=== PATIENT | male | born 1970 | race Caucasian/White ===

== ENCOUNTER 2022-09-24 11:42 | Inpatient (IN) ==
[2022-09-24] MEDS ORDERED: SODIUM CHLORIDE 0.9% 1000ML 1,000 ML IV ONE ×2 (11:51→13:41)
[2022-09-24] MEDS ORDERED: ACETAMINOPHEN 1,000 MG/100 ML VIAL IV STA (12:06)
[2022-09-24] MEDS ORDERED: MoRPHine SULFATE 10 MG/ML CARP/VIAL IV STA ×2 (12:06→13:55)
[2022-09-24] MEDS ORDERED: ONDANSETRON INJ 2 MG/ML 2 ML VIAL IV STA (12:06)
--- NOTE | 2022-09-24 12:16 | Emergency Department Note ---
Impression & Plan Hydronephrosis, Ureterolithiasis, Hx of lithotripsy ED Provider Note NAME: HELENA FISCHER AGE: 52 SEX: M ARRIVES VIA: Walk-In INFORMANT: Patient ED PROVIDER(S): Bernardo Avila MD CHIEF COMPLAINT: Left flank pain. PLAN: Disposition: Admit MEDICAL DECISION MAKING: The patient is a 52-year-old gentleman with a past medical history of nephrolithiasis who presents to the emergency department with acute onset left lower quadrant abdominal pain in setting of having recent lithotripsy on Thursday reports she was doing well over the weekend but then pain recurred and he has gross red blood in his urine. He reports associated nausea with the pain. He denies any fevers, cough, congestion. He reports he has been having diarrhea over the past week as well. He denies any recent antibiotics. On arrival the patient is uncomfortable no acute distress, afebrile stable vital signs. He has mild left lower abdominal tenderness without guarding or rebound. WBC 13K nonspecific. H/H and platelets within normal limits. Chemistry without metabolic acidosis. Total bili 1.5, nonspecific and LFTs otherwise normal. UA with RBCs and otherwise no evidence of infection. CT of the on pelvis was performed and demonstrates mild to moderate left hydroureteronephrosis with obstructing stone/fragments in the proximal and distal left ureter in setting of the patient's lead recent lithotripsy. Additionally, there is question of mild nonspecific colitis which may reflect the patient is diabetes mellitus. On reevaluation the patient did report feeling improvement initially following IV fluid hydration, APAP, morphine and Zofran. However his severe pain and nausea quickly returned. He was additionally given morphine and Phenergan. Given the persistence of his symptoms with numerous obstructing ureteral stone/fragments degrees plan for admission for additional pain control and likely urology consultation. Case was discussed with Lori Muir, Sara PAC, with Dr. Caitlyn Ruiz hospitalist who will evaluate the patient for admission. Triage Nursing notes reviewed and agree them. Prior/outside medical records reviewed Vital Signs: reviewed Differential diagnosis: Renal colic, UTI, appendicitis, diverticulitis, mesenteric ischemia, aortic pathology, infections, inflammatory bowel disease, PUD, biliary pathology, as well as other pathologies. ER treatment provided: See below. Diagnostics interpreted by me: Cardiac Monitoring: An order for continuous cardiac monitoring was placed and demonstrated normal sinus rhythm, 71 bpm, no ectopy. Laboratory studies: See below Imaging studies: See below Consultation(s): Case was discussed with Lori Muir, Sara PAC, with Dr. Caitlyn Ruiz hospitalist who will evaluate the patient for admission. HPI: The patient is a 52-year-old gentleman with a past medical history of nephrolithiasis who presents to the emergency department with acute onset left lower quadrant abdominal pain in setting of having recent lithotripsy on Thursday reports she was doing well over the weekend but then pain recurred and he has gross red blood in his urine. He reports associated nausea with the pain. He denies any fevers, cough, congestion. He reports he has been having diarrhea over the past week as well. He denies any recent antibiotics. ROS: See above HPI for pertinent positives & negatives. A total of 10 systems reviewed and were otherwise negative. VITALS:See Below PHYSICAL EXAMINATION: GENERAL: Awake, alert, uncomfortable-appearing, in no distress HENT: Normocephalic, atraumatic. Oropharynx with dry mucous membranes and otherwise unremarkable. EYES: Normal conjunctiva. Sclera non-icteric. NECK: Supple. No nuchal rigidity. FROM. No JVD. RESPIRATORY: Clear to auscultation. CARDIAC: Regular rate, normal rhythm. Extremities warm and well perfused. Pulses equal. ABDOMEN: Soft, non-distended. Mild left lower abdominal tenderness without guarding or rebound. RECTAL: Deferred. MUSCULOSKELETAL: Chest examination reveals no tenderness. The back is symme trical on inspection without obvious abnormality. There is no CVA tenderness to palpation. No joint edema. LOWER EXTREMITIES: Calves are equal size bilaterally and non-tender. No edema. No discoloration. NEURO: Normal sensorium. No sensory or motor deficits noted. SKIN: No rash or jaundice noted. Bernardo Avila MD Past Med/Surg History Medical History Anxiety Diverticular disease History of COVID-19 04/2022--mild symptoms, no symptoms now Hyperlipidemia Kidney stones Lumbar back pain Nausea and vomiting after administration of anesthetic agent Sleep apnea cpap Vitamin D deficiency Surgical History History of colonoscopy History of hernia surgery x3 History of open reduction and internal fixation (ORIF) procedure right arm x2--hardware in place History of surgery left arm, no hardware History of wisdom tooth extraction Hx of LASIK Family History Other No family history of adverse response to anesthesia Social History Smoking Status: Never smoker Second Hand Exposure: No; Hx Alcohol Use: Yes Hx Substance Use: No Preferred Language: Citizen Of [place] Communication Ability: Effective 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 Beliefs That Will Affect Care: None Current Living Situation: Spouse and Family Current Living Situation Comment: Lives with and 3 kids Feels Safe at Home: Yes Assistive Devices: CPAP Allergies Allergies Allergy/AdvReac Type Severity Reaction Status Date / Time No Known Allergies Allergy Verified 09/24/22 14:25 Home Meds Home Medications Medication Instructions Recorded Confirmed atorvastatin 40 mg tablet 40 mg PO HS 10/10/21 09/24/22 buspirone 15 mg tablet 7.5 mg PO BID 10/10/21 09/24/22 escitalopram oxalate 10 mg tablet 10 mg PO HS 10/10/21 09/24/22 Previous Rx's Medication Instructions Recorded tramadol 50 mg tablet 50 mg PO Q6H PRN pain #20 tabs 09/19/22 Results & Data (ED) Vital Signs Vital Signs - 24 hr 09/24/22 11:47 09/24/22 11:52 09/24/22 14:19 Temperature 36.9 C Temperature Source Temporal Artery Scan Pulse Rate 59 L 72 Respiratory Rate 20 Respiratory Effort / Characteristics Non-Labored Spontaneous Respiratory Depth Normal Respiratory Pattern Regular Blood Pressure 134/82 Blood Pressure Mean 99 Pulse Oximetry 98 Oxygen Delivery Method Room Air Room Air Sepsis Recent Fever Within 48 Hours No Sepsis New/Unexplained Change in Mental Status No Sepsis Action Taken by Nursing No Action Required Laboratory Data Attestation: I reviewed the patient's lab results. 09/24/22 11:58 09/24/22 11:58 Lab Results 09/24/22 09/24/22 09/24/22 Range/Units 11:58 11:58 12:00 WBC 13.66 H (4.8-10.8) K/ul RBC 5.47 (4.70-6.10) M/uL Hgb 17.5 (14.0-18.0) g/dl Hct 49.3 (42.0-52.0) % MCV 90.1 (80.0-100.0) fL MCH 32.0 (25.0-34.0) pg MCHC 35.5 (32.0-36.0) g/dL RDW Std Deviation 41.0 (36.4-46.3) fL RDW Coeff of Lisa 12.4 (11.5-14.5) % Plt Count 278 (130-400) K/uL MPV 9.7 (9.4-12.4) fL Immature Gran % (Auto) 0.3 % Neut % (Auto) 79.5 % Lymph % (Auto) 12.5 % [place] % (Auto) 7.1 % Eos % (Auto) 0.4 % Baso % (Auto) 0.2 % Neut # (Auto) 10.85 H (1.40-6.50) K/uL Lymph # (Auto) 1.71 (1.2-3.4) K/uL [place] # (Auto) 0.97 H (0.11-0.59) K/uL Eos # (Auto) 0.06 (0-0.50) K/uL Baso # (Auto) 0.03 (0-0.2) K/uL Immature Gran # (Auto) 0.04 (0.01-0.20) K/uL PT 10.9 (9.0-12.0) Seconds INR 1.0 (0.9-1.1) Sodium 138 (136-145) mmol/L Potassium 4.1 (3.5-5.1) mmol/L Chloride 103 (98-107) mmol/L Carbon Dioxide 27 (21-32) mmol/L Anion Gap 8 (3-11) BUN 16 (6-23) mg/dl Creatinine 1.21 (0.6-1.4) mg/dl Est Cr Clr Drug Dosing 90.5 ml/min Est GFR ( Amer) 79.9 ml/min Est GFR (Non-Af Amer) 68.9 ml/min BUN/Creatinine Ratio 13.2 (10-20) Glucose 122 H (70-99(Fasting)) mg/dl Calcium 9.8 (8.6-10.3) mg/dl Total Bilirubin 1.5 H (0.2-1.0) mg/dl AST 19 (13-39) U/L ALT 17 (7-52) U/L Alkaline Phosphatase 94 (34-104) U/L Total Protein 8.0 (6.0-8.3) gm/dl Albumin 4.5 (3.4-5.0) gm/dl Globulin 3.5 (2.5-4.0) gm/dl Albumin/Globulin Ratio 1.3 (0.9-2) Lipase 28 (11-82) U/L SARS-CoV-2, RNA, NAAT (NEGATIVE) 09/24/22 Range/Units 12:22 WBC (4.8-10.8) K/ul RBC (4.70-6.10) M/uL Hgb (14.0-18.0) g/dl Hct (42.0-52.0) % MCV (80.0-100.0) fL MCH (25.0-34.0) pg MCHC (32.0-36.0) g/dL RDW Std Deviation (36.4-46.3) fL RDW Coeff of Lisa (11.5-14.5) % Plt Count (130-400) K/uL MPV (9.4-12.4) fL Immature Gran % (Auto) % Neut % (Auto) % Lymph % (Auto) % [place] % (Auto) % Eos % (Auto) % Baso % (Auto) % Neut # (Auto) (1.40-6.50) K/uL Lymph # (Auto) (1.2-3.4) K/uL [place] # (Auto) (0.11-0.59) K/uL Eos # (Auto) (0-0.50) K/uL Baso # (Auto) (0-0.2) K/uL Immature Gran # (Auto) (0.01-0.20) K/uL PT (9.0-12.0) Seconds INR (0.9-1.1) Sodium (136-145) mmol/L Potassium (3.5-5.1) mmol/L Chloride (98-107) mmol/L Carbon Dioxide (21-32) mmol/L Anion Gap (3-11) BUN (6-23) mg/dl Creatinine (0.6-1.4) mg/dl Est Cr Clr Drug Dosing ml/min Est GFR ( Amer) ml/min Est GFR (Non-Af Amer) ml/min BUN/Creatinine Ratio (10-20) Glucose (70-99(Fasting)) mg/dl Calcium (8.6-10.3) mg/dl Total Bilirubin (0.2-1.0) mg/dl AST (13-39) U/L ALT (7-52) U/L Alkaline Phosphatase (34-104) U/L Total Protein (6.0-8.3) gm/dl Albumin (3.4-5.0) gm/dl Globulin (2.5-4.0) gm/dl Albumin/Globulin Ratio (0.9-2) Lipase (11-82) U/L SARS-CoV-2, RNA, NAAT NEGATIVE (NEGATIVE) Administered Medications Atorvastatin Calcium (Atorvastatin 40 Mg Tab) 40 mg PO [facility] Stop: 10/24/22 20:59 Last Admin: 09/24/22 21:00 Dose: 40 mg Documented By: JOON Buspirone HCl (Buspirone 7.5 Mg Tab) 7.5 mg PO BID [facility] Stop: 10/24/22 20:59 Last Admin: 09/24/22 21:00 Dose: 7.5 mg Documented By: JOON Escitalopram Oxalate (Escitalopram Oxalate 10 Mg Tab) 10 mg PO [facility] Stop: 10/24/22 20:59 Last Admin: 09/24/22 22:10 Dose: 10 mg Documented By: JOON Sodium Chloride (Nss 1000ml) 1,000 mls @ 125 mls/hr IV .Q8H [facility] Stop: 09/25/22 12:00 Last Admin: 09/24/22 21:02 Dose: 125 mls/hr Documented By: JOON Ceftriaxone Sodium 2,000 mg/ (Dextrose) 70 mls @ 100 mls/hr IV Q24H [facility]; Protocol Stop: 10/04/22 20:14 Last Infusion: 09/24/22 21:50 Dose: 0 mls/hr Documented By: Admin: 09/24/22 21:02 Dose: 100 mls/hr Documented By: JOON Tamsulosin HCl (Tamsulosin Hcl 0.4 Mg Cap) 0.4 mg PO [facility] Stop: 10/24/22 20:59 Last Admin: 09/24/22 21:00 Dose: 0.4 mg Documented By: SLB Discontinued Medications Ciprofloxacin (Ciprofloxacin 400mg / 200ml D5w) Confirm Administered Dose 400 mg IV .STK-MED ONE Stop: 09/24/22 16:37 Last Admin: 09/24/22 18:28 Dose: 400 mg Documented By: MG Hydromorphone HCl (Hydromorphone Inj 0.5 Mg/0.5 Ml Syr) 0.5 mg IV NOW STA Stop: 09/24/22 15:05 Last Admin: 09/24/22 15:12 Dose: 0.5 mg Documented By: ARS Sodium Chloride (Nss 1000ml) 1,000 mls @ 999 mls/hr IV .Q1H1M ONE Stop: 09/24/22 12:51 Last Infusion: 09/24/22 15:47 Dose: 0 mls/hr Documented By: Admin: 09/24/22 12:01 Dose: 999 mls/hr Documented By: MES Acetaminophen (Ofirmev) 1,000 mg in 100 mls @ 400 mls/hr IV NOW STA Stop: 09/24/22 12:20 Last Infusion: 09/24/22 15:46 Dose: 0 mls/hr Documented By: Admin: 09/24/22 12:14 Dose: 400 mls/hr Documented By: ARS Sodium Chloride (Nss 1000ml) 1,000 mls @ 999 mls/hr IV .Q1H1M ONE Stop: 09/24/22 14:41 Last Infusion: 09/24/22 15:47 Dose: 0 mls/hr Documented By: Admin: 09/24/22 14:11 Dose: 999 mls/hr Documented By: ARS Promethazine HCl (Phenergan) 25 mg in 51 mls @ 204 mls/hr IV NOW STA Stop: 09/24/22 14:09 Last Infusion: 09/24/22 15:46 Dose: 0 mls/hr Documented By: Admin: 09/24/22 14:11 Dose: 204 mls/hr Documented By: ARS Iothalamate Meglumine (Conray 60% 50 Ml Vial) 1 ml FLUSH ONCE ONE Stop: 09/24/22 18:51 Last Admin: 09/24/22 18:50 Dose: 1 ml Documented By: [id number] Ioversol (Optiray 350 100ml) 87 ml IV ONCE ONE Stop: 09/24/22 12:54 Last Admin: 09/24/22 12:54 Dose: 87 ml Documented By: GAY Ketorolac Tromethamine (Ketorolac Tromethamine 15 Mg/Ml Vial) 15 mg IV NOW ONE Stop: 09/24/22 15:05 Last Admin: 09/24/22 15:11 Dose: 15 mg Documented By: KADEEM Morphine Sulfate (Morphine Sulfate 10 Mg/Ml Carp/Vial) 6 mg IV NOW STA Stop: 09/24/22 12:07 Last Admin: 09/24/22 12:13 Dose: 6 mg Documented By: KADEEM Morphine Sulfate (Morphine Sulfate 10 Mg/Ml Carp/Vial) 8 mg IV NOW STA Stop: 09/24/22 13:56 Last Admin: 09/24/22 14:08 Dose: 8 mg Documented By: KADEEM Ondansetron HCl (Ondansetron Inj 2 Mg/Ml 2 Ml Vial) 4 mg IV NOW STA Stop: 09/24/22 12:07 Last Admin: 09/24/22 12:14 Dose: 4 mg Documented By: KADEEM Imaging Data Radiologist's Impression: Abdomen/Pelvis CT 09/24/22 12:06 CT SCAN OF THE ABDOMEN AND PELVIS WITH IV CONTRAST CLINICAL HISTORY: Left flank pain status post lithotripsy. COMPARISON STUDY: Abdominal CT scans dated 10/10/2021 and 09/12/2022. TECHNIQUE: Following the IV administration of 87 cc of Optiray 350, CT scan of the abdomen and pelvis is performed from the lung bases to the proximal femora. Images are reviewed in the axial, sagittal, and coronal planes. IV contrast was administered without complication. A dose lowering technique was utilized adhering to the principles of ALARA. CT DOSE: 816.71 mGy.cm FINDINGS: Lung bases: The heart is normal in size and without pericardial effusion. Subsegmental atelectasis is seen at both lung bases. There is no airspace co nsolidation typical for pneumonia or pleural effusion. Liver: The contrast-enhanced liver is normal in size, contour, and attenuation. There is no intrahepatic biliary ductal dilatation. The hepatic veins and portal veins are patent. Gallbladder: Unremarkable. Spleen: Normal in size and attenuation. Pancreas: Unremarkable. Adrenal glands: Unremarkable. Kidneys: The contrast enhanced kidneys are normal in size. There are 2 stones/fragments in the left proximal ureter at the level of L3 seen on images #235 and #239. These measure up to 4 mm. A punctate stone fragment in the mid left ureter is seen on image #299. There are at least 4 small stones/fragments in the distal left ureter seen on images #[id number]. These measurements are 3 mm. These cause mild to moderate left-sided hydroureteronephrosis. There is associated perinephric and periureteric stranding. A cluster of stones/fragments in the left lower pole measures up to [address]ones/fragments are identified on the left. There is a 13 mm nonobstructing calculus in the right lower pole as well as additional smaller nonobstructing right renal calculi. There is no right ureteral stone or right-sided hydronephrosis. Enhancement of the left kidney is heterogeneous. The right kidney enhances homogeneously. There is no evidence of subcapsular hematoma. Abdominal vasculature: The abdominal aorta is normal in course and caliber noting mild to moderate atherosclerotic calcification. Bowel: There is mild colonic diverticulosis without CT evidence of acute diverticulitis. No bowel obstruction is seen. There is a long segment of mild wall thickening and surrounding inflammation involving the left colon. This extends from the descending colon to the sigmoid and suggests a mild nonspecific colitis. The appendix is well-visualized and normal. Peritoneum: There is no intraperitoneal free air or abdominal ascites. Lymphadenopathy: None. Pelvic viscera: The bladder, prostate, and seminal vesicles unremarkable as visualized. Surgical clips are seen along the spermatic cord bilaterally. There is evidence of previous bilateral inguinal herniorrhaphy. Skeletal structures: No lytic or blastic lesions are seen. IMPRESSION: 1. There are obstructing stones/fragments in the proximal and distal left ureter as detailed above. This causes mild to moderate left hydroureteronephrosis. 2. There are additional nonobstructing stones/fragments in the left kidney as well as nonobstructing right renal calculi as above. 3. There is heterogeneous enhancement the left kidney with surrounding infla mmation, likely related to obstruction/hydronephrosis. Correlate with clinical findings and urinalysis. 4. There is evidence of a mild nonspecific colitis of the left colon. Correlate clinically. 5. Additional findings as above. ACT 112: Negative or not required by law. Electronically signed by: Marlo Villegas M.D. 09/24/2022 1:20 PM Discharge Plan Visit Data Chief Complaint: Flank Pain Stated Complaint: KIDNEY PAIN LEFT SIDE ED Provider: Bernardo Avila Discharge Problem: Hydronephrosis, Ureterolithiasis, Hx of lithotripsy Patient Disposition: Admitted As Inpatient Discharge Instructions Interventions: ED Discharge Assessment Last Done: 09/24/22 16:52
[2022-09-24 12:22] LABS: Basophils # (auto) 0.03 K/uL (0-0.2); Basophils % (auto) 0.2 %; Eosinophils # (auto) 0.06 K/uL (0-0.50); Eosinophils % (auto) 0.4 %; Hematocrit (blood only) 49.3 % (42.0-52.0); Hemoglobin 17.5 g/dl (14.0-18.0); Immature Granulocytes # (auto) 0.04 K/uL (0.01-0.20); Immature Granulocytes % (auto) 0.3 %; Lymphocytes # (auto) 1.71 K/uL (1.2-3.4); Lymphocytes % (auto) 12.5 %; Mean Corpuscular Hgb Conc 35.5 g/dL (32.0-36.0); Mean Corpuscular Volume 90.1 fL (80.0-100.0); Mean Platelet Volume 9.7 fL (9.4-12.4); Monocytes # (auto) 0.97 K/uL (0.11-0.59); Monocytes % (auto) 7.1 %; Neutrophils # (auto) 10.85 K/uL (1.40-6.50); Neutrophils % (auto) 79.5 %; Platelet Count 278 K/uL (130-400); RDW Coefficient of Variation 12.4 % (11.5-14.5); Red Blood Count 5.47 M/uL (4.70-6.10); White Blood Count 13.66 K/ul (4.8-10.8)
[2022-09-24 12:31] LABS: Prothrombin Time 10.9 Seconds (9.0-12.0)
[2022-09-24 12:37] LABS: Albumin Level 4.5 gm/dl (3.4-5.0); Bilirubin,Total 1.5 mg/dl (0.2-1.0); Calcium 9.8 mg/dl (8.6-10.3); Potassium 4.1 mmol/L (3.5-5.1)
[2022-09-24 12:43] LABS: Albumin Globulin Ratio 1.3 (0.9-2); BUN Creatinine Ratio 13.2 (10-20); Creatinine Clr Calc Pharmacy 90.5 ml/min; Est GFR (African American) 79.9 ml/min; Est GFR (Non-African American) 68.9 ml/min; Globulin 3.5 gm/dl (2.5-4.0)
[2022-09-24] MEDS ORDERED: OPTIRAY 350 100ml IV ONE (12:53)
--- NOTE | 2022-09-24 13:22 | CT Scan Report ---
CT SCAN OF THE ABDOMEN AND PELVIS WITH IV CONTRAST CLINICAL HISTORY: Left flank pain status post lithotripsy. COMPARISON STUDY: Abdominal CT scans dated 10/10/2021 and 09/12/2022. TECHNIQUE: Following the IV administration of 87 cc of Optiray 350, CT scan of the abdomen and pelvi s is performed from the lung bases to the proximal femora. Images are reviewed in the axial, sagittal , and coronal planes. IV contrast was administered without complication. A dose lowering technique wa s utilized adhering to the principles of ALARA. CT DOSE: 816.71 mGy.cm FINDINGS: Lung bases: The heart is normal in size and without pericardial effusion. Subsegmental atelectasis is seen at both lung bases. There is no airspace consolidation typical for pneumonia or pleural effusio n. Liver: The contrast-enhanced liver is normal in size, contour, and attenuation. There is no intrahepa tic biliary ductal dilatation. The hepatic veins and portal veins are patent. Gallbladder: Unremarkable. Spleen: Normal in size and attenuation. Pancreas: Unremarkable. Adrenal glands: Unremarkable. Kidneys: The contrast enhanced kidneys are normal in size. There are 2 stones/fragments in the left p roximal ureter at the level of L3 seen on images #235 and #239. These measure up to 4 mm. A punctate stone fragment in the mid left ureter is seen on image #299. There are at least 4 small stones/fragme nts in the distal left ureter seen on images #[id number]. These measurements are 3 mm. These cause mild to moderate left-sided hydroureteronephrosis. There is associated perinephric and periureteric strand ing. A cluster of stones/fragments in the left lower pole measures up to [address] ones/fragments are identified on the left. There is a 13 mm nonobstructing calculus in the right lowe r pole as well as additional smaller nonobstructing right renal calculi. There is no right ureteral s tone or right-sided hydronephrosis. Enhancement of the left kidney is heterogeneous. The right kidney enhances homogeneously. There is no evidence of subcapsular hematoma. Abdominal vasculature: The abdominal aorta is normal in course and caliber noting mild to moderate at herosclerotic calcification. Bowel: There is mild colonic diverticulosis without CT evidence of acute diverticulitis. No bowel obs truction is seen. There is a long segment of mild wall thickening and surrounding inflammation involv ing the left colon. This extends from the descending colon to the sigmoid and suggests a mild nonspec ific colitis. The appendix is well-visualized and normal. Peritoneum: There is no intraperitoneal free air or abdominal ascites. Lymphadenopathy: None. Pelvic viscera: The bladder, prostate, and seminal vesicles unremarkable as visualized. Surgical clip s are seen along the spermatic cord bilaterally. There is evidence of previous bilateral inguinal her niorrhaphy. Skeletal structures: No lytic or blastic lesions are seen. IMPRESSION: 1. There are obstructing stones/fragments in the proximal and distal left ureter as detailed above. T his causes mild to moderate left hydroureteronephrosis. 2. There are additional nonobstructing stones/fragments in the left kidney as well as nonobstructing right renal calculi as above. 3. There is heterogeneous enhancement the left kidney with surrounding inflammation, likely related t o obstruction/hydronephrosis. Correlate with clinical findings and urinalysis. 4. There is evidence of a mild nonspecific colitis of the left colon. Correlate clinically. 5. Additional findings as above. ACT 112: Negative or not required by law. Electronically signed by: Marlo Villegas M.D. 09/24/2022 1:20 PM
[2022-09-24] MEDS ORDERED: PROMETHAZINE 25 MG/51 ML BAG IV STA (13:55)
--- NOTE | 2022-09-24 14:29 | History & Physical Report ---
Date of Service September 24, 2022 Assessment & Plan (1) Renal colic: (2) Ureteral calculus, left: (3) Hydronephrosis: Plan: Patient is 52 y/o M with PMH dyslipidemia, anxiety, KELSIE, kidney stones presented to ER with complaint of left flank and left lower abdominal pain x1 day. Lithotripsy on 09/19/22. In ER afebrile, vitals stable WBC: 13.6, BUN: 16, Cr: 1.2 (baseline~1.0 per chart review). UA: 3+ blood,> 30 WBC, negative bacteria CT abdomen pelvis: There are obstructing stones/fragments in the proximal and distal left ureter as detailed above. This causes mild to moderate left hydroureteronephrosis. There are additional nonobstructing stones/fragments in the left kidney as well as nonobstructing right renal calculi as above. There is heterogeneous enhancement the left kidney with surrounding inflammation, likely related to obstruction/hydronephrosis. In ER required multiple doses of IV pain medication without significant relief N.p.o. Scheduled Toradol x24 hours, oxycodone, Dilaudid as needed pain Strain urine Start Flomax Rocephin Urology consult, spoke to MILI Greer, request patient be n.p.o. for possible procedure tonight CBC, BMP in a.m. (4) Hyperlipidemia: Plan: Continue atorvastatin (5) Anxiety: Plan: Continue escitalopram, buspirone (6) Sleep apnea: Plan: CPAP at bedtime DVT Prophylaxis SCDs Full Code as per discussion with pt Follows with Ezio Fraser PA-C, [facility] [place] for routine care Pt was seen and care coordinated with Dr Brady. See addendum I spent a total of 75 minutes reviewing notes, outpatient records, labs, medication, coordinating, documenting and providing care for this patient excluding time spent in the performance of separately billed services. History of Present Illness Chief Complaint: Flank pain Primary Care Provider: Ezio Fraser PA-C Patient is 52 y/o M with PMH dyslipidemia, anxiety, KELSIE, kidney stones presented to ER with complaint of left flank and left lower abdominal pain x1 day. History obtained from patient and chart review. Patient following with urology and had lithotripsy on 09/19/22. States for 2 days after procedure had hematuria. Denies significant flank or abdominal pain immediately following procedure. States last night started with stabbing pain to left lower abdomen. Took tramadol and went back to sleep. Woke up again this morning with stabbing and more intense pain to left lower abdomen. Took Tramadol without relief. Denies nausea, vomiting. States when pain is severe has diaphoresis. Pain is non- radiating. States has been urinating small amounts and does not feel he is completely emptying his bladder. Hasn't noticed gross hematuria today. He has been constipated. Last BM 4 days ago. This morning took OTC laxative. After had 2-3 episodes of loose stool. Denies hematochezia, melena. Last ate one piece of pizza at 7pm last night. Reports did not eat today. Sipped water to take pill this morning. Denies fever/chills, diaphoresis, ULLOA, dizziness, syncope, vision changes, neck pain, CP, SOB, orthopnea, palpitations, cough, sore throat, choking, otalgia, rhinorrhea, paresthesias, weakness, extremity weakness, extremity edema, dysuria. Allergies Allergy/AdvReac Type Severity Reaction Status Date / Time No Known Allergies Allergy Verified 09/24/22 14:25 Home Medications Medication Instructions Recorded Confirmed Type atorvastatin 40 mg tablet 40 mg PO HS 10/10/21 09/24/22 History buspirone 15 mg tablet 7.5 mg PO BID 10/10/21 09/24/22 History escitalopram oxalate 10 mg tablet 10 mg PO HS 10/10/21 09/24/22 History tramadol 50 mg tablet 50 mg PO Q6H PRN pain #20 tabs 09/19/22 09/24/22 Rx Past Med/Surg History Medical History (Updated 09/24/22 @ 21:18 by Sherley Muir PA-C) Anxiety Diverticular disease History of COVID-19 04/2022--mild symptoms, no symptoms now Hyperlipidemia Kidney stones Lumbar back pain Nausea and vomiting after administration of anesthetic agent Sleep apnea cpap Vitamin D deficiency Surgical History History of colonoscopy History of hernia surgery x3 History of open reduction and internal fixation (ORIF) procedure right arm x2--hardware in place History of surgery left arm, no hardware History of wisdom tooth extraction Hx of LASIK Family History Other No family history of adverse response to anesthesia Social History Smoking Status: Never smoker Second Hand Exposure: No; Hx Alcohol Use: Yes Hx Substance Use: No Preferred Language: Micronesian Communication Ability: Effective Manager Of Administration Required: No Beliefs That Will Affect Care: None Current Living Situation: Spouse and Family Current Living Situation Comment: Lives with and 3 kids Feels Safe at Home: Yes Assistive Devices: CPAP Review of Systems Review of Systems: All systems reviewed & are unremarkable except as noted in HPI & below Physical Exam Physical Exam: General: + distress secondary to discomfort, WDWN Head: normocephalic, atraumatic Eyes: conjunctiva non-injected, anicteric ENT: normal inspection external ears, nose, mucous membranes moist Neck: supple, trachea midline Lungs: clear, no respiratory distress, no wheezing/rhonchi/rales CV: RRR, no murmur, no pretibial edema Abd: normal BS, soft,+tender LLQ Ext: no cyanosis, no calf tenderness Neuro: A&O x 3, no focal deficits noted, normal affect Skin: warm, dry Results & Data Results & Data Vital Signs (Past 12 Hours) Vital Signs Temp Pulse Resp BP Pulse Ox O2 Del Method 09/24/22 14:19 72 09/24/22 11:52 Room Air 09/24/22 11:47 36.9 C 59 L 20 134/82 98 Room Air Laboratory Results Short CBC 09/24/22 Range/Units 11:58 WBC 13.66 H (4.8-10.8) K/ul Hgb 17.5 (14.0-18.0) g/dl Hct 49.3 (42.0-52.0) % Plt Count 278 (130-400) K/uL BMP 09/24/22 11:58 Sodium 138 Potassium 4.1 Chloride 103 Carbon Dioxide 27 BUN 16 Creatinine 1.21 Glucose 122 H Calcium 9.8 Liver Function 09/24/22 Range/Units 11:58 Total Bilirubin 1.5 H (0.2-1.0) mg/dl AST 19 (13-39) U/L ALT 17 (7-52) U/L Alkaline Phosphatase 94 (34-104) U/L Albumin 4.5 (3.4-5.0) gm/dl Urine 09/24/22 Range/Units 15:03 Urine Color Yellow Urine Appearance Clear (Clear) Urine pH 7.0 (4.5-7.5) Ur Specific [place] > 1.045 H (1.000-1.030) Urine Protein Negative (Negative) Urine Glucose (UA) Negative (Negative) Diagnostic Findings Abdomen/Pelvis CT 09/24/22 12:06 CT SCAN OF THE ABDOMEN AND PELVIS WITH IV CONTRAST CLINICAL HISTORY: Left flank pain status post lithotripsy. COMPARISON STUDY: Abdominal CT scans dated 10/10/2021 and 09/12/2022. TECHNIQUE: Following the IV administration of 87 cc of Optiray 350, CT scan of the abdomen and pelvis is performed from the lung bases to the proximal femora. Images are reviewed in the axial, sagittal, and coronal planes. IV contrast was administered without complication. A dose lowering technique was utilized adhering to the principles of ALARA. CT DOSE: 816.71 mGy.cm FINDINGS: Lung bases: The heart is normal in size and without pericardial effusion. Subseg mental atelectasis is seen at both lung bases. There is no airspace consolidation typical for pneumonia or pleural effusion. Liver: The contrast-enhanced liver is normal in size, contour, and attenuation. There is no intrahepatic biliary ductal dilatation. The hepatic veins and portal veins are patent. Gallbladder: Unremarkable. Spleen: Normal in size and attenuation. Pancreas: Unremarkable. Adrenal glands: Unremarkable. Kidneys: The contrast enhanced kidneys are normal in size. There are 2 stones/fragments in the left proximal ureter at the level of L3 seen on images #235 and #239. These measure up to 4 mm. A punctate stone fragment in the mid left ureter is seen on image #299. There are at least 4 small stones/fragments in the distal left ureter seen on images #[id number]. These measurements are 3 mm. These cause mild to moderate left-sided hydroureteronephrosis. There is associated perinephric and periureteric stranding. A cluster of stones/fragments in the left lower pole measures up to [address]ones/fragments are identified on the left. There is a 13 mm nonobstructing calculus in the right lower pole as well as additional smaller nonobstructing right renal calculi. There is no right ureteral stone or right-sided hydronephrosis. Enhancement of the left kidney is heterogeneous. The right kidney enhances homogeneously. There is no evidence of subcapsular hematoma. Abdominal vasculature: The abdominal aorta is normal in course and caliber noting mild to moderate atherosclerotic calcification. Bowel: There is mild colonic diverticulosis without CT evidence of acute diverticulitis. No bowel obstruction is seen. There is a long segment of mild wall thickening and surrounding inflammation involving the left colon. This extends from the descending colon to the sigmoid and suggests a mild nonspecific colitis. The appendix is well-visualized and normal. Peritoneum: There is no intraperitoneal free air or abdominal ascites. Lymphadenopathy: None. Pelvic viscera: The bladder, prostate, and seminal vesicles unremarkable as visualized. Surgical clips are seen along the spermatic cord bilaterally. There is evidence of previous bilateral inguinal herniorrhaphy. Skeletal structures: No lytic or blastic lesions are seen. IMPRESSION: 1. There are obstructing stones/fragments in the proximal and distal left ureter as detailed above. This causes mild to moderate left hydroureteronephrosis. 2. There are additional nonobstructing stones/fragments in the left kidney as well as nonobstructing right renal calculi as above. 3. There is heterogeneous enhancement the left kidney with surrounding inflammation, likely related to obstruction/hydronephrosis. Correlate with clinical findings and urinalysis. 4. There is evidence of a mild nonspecific colitis of the left colon. Correlate clinically. 5. Additional findings as above. ACT 112: Negative or not required by law. Electronically signed by: Marlo Villegas M.D. 09/24/2022 1:20 PM Supervising Physician Co-Signing Physician Notes Patient was seen and examined independently. Chart reviewed. Case discussed with MAURICIO. Ceftriaxone, IVF, Keep NPO until cystoscopy then regular diet.
[2022-09-24] MEDS ORDERED: HYDROmorphone INJ 0.5 MG/0.5 ML SYR IV STA (15:04)
[2022-09-24] MEDS ORDERED: KETOROLAC TROMETHAMINE 15 MG/ML VIAL IV ONE (15:04)
[2022-09-24 15:25] LABS: Appearance Urine Clear (Clear); Bacteria Urine Automated Negative (Negative); Bilirubin Urine Negative (Negative); Blood Urine 3+ (Negative); Color Urine Yellow; Epithelial Cell Urine Auto 0-5 /lpf (0-5); Glucose Urine UA Negative (Negative); Ketones Urine Negative (Negative); Leukocyte Esterase Urine Negative (Negative); Nitrite Urine Negative (Negative); Protein Urine Negative (Negative); RBC Urine Automated >30 /hpf (0-4); Specific Gravity Urine > 1.045 (1.000-1.030); Urobilinogen Urine Negative (Negative)
--- NOTE | 2022-09-24 15:48 | Urology Consultation ---
I have discussed Mr. Garrido's case with MILI Headley and agree with the above documentation. He has ureteral obstructing stones after shockwave lithotripsy. Low suspicion for infection, but due to ongoing pain control issues we will plan for cystoscopy, retrograde pyelogram and left ureteral stent placement under anesthesia. If he is feeling well and clinically stable after surgery, it be reasonable to consider discharge home this evening with outpatient follow-up with urology. -Onesimo Oseguera MD. Date of Consultation September 24, 2022 Assessment & Plan (1) Ureteral calculus, left: 52 yo M recently status post left ESWL for large left renal calculus presented to the emergency department on 09/24/2022 with intractable left abdominal pain and nausea and was admitted for pain secondary to multiple left obstructing ureteral calculi. Patient afebrile and hemodynamically stable. Labs reviewedcreatinine 1.21, WBC 13.66. Urinalysis was not suggestive of infection. CT A/P notable for multiple obstructing left proximal and distal ureteral stone fragments with left hydroureteronephrosis. We discussed options for management including observation, trial of passage, or surgical intervention with left ureteral stent placement today. Ureteral stents were discussed in detail. Expected clinical course reviewed. Discussed treatment of stones at a later date. Patient would like to proceed with left ureteral stent placement today. Given his intractable pain and hydronephrosis in the context of multiple obstructing left ureteral stones, will proceed with OR for cystoscopy, Left retrograde pyelogram and Left stent placement. Risks and benefits to be reviewed with patient by Dr. Oseguera. OR notified. Will cover with IV Ciprofloxacin preoperatively. Keep NPO for procedure. History of Present Illness History of Present Illness This is a 52-year-old male with history of bilateral calcium nephrolithiasis recently status post left ESWL for large left renal calculus who presented to the emergency department on 09/24/2022 with intractable left lower quadrant abdominal pain and associated nausea. On arrival he was afebrile and hemodynamically stable. Lab work independently reviewed and showed creatinine 1.21, WBC 13.66, hemoglobin 17.5. Urinalysis showed 3+ blood, >30 RBC, negative for bacteria. CT A/P with IV contrast independently reviewed and notable for obstructing stone fragments in the proximal and distal left ureter resulting in mild to moderate left hydroureteronephrosis. There is heterogeneous enhancement of the left kidney with some surrounding inflammation. Additional nonobstructing stones in the left kidney as well as nonobstructing right renal calculi. He was treated with IV fluids, acetaminophen, morphine and ondansetron. He has been admitted to the hospital medicine service. Urology is consulted for obstructing left ureteral calculi. Patient seen and examined in the emergency department. He is awake and resting in bed in no apparent distress. He reports left abdominal pain became severe last night and was unrelieved with Tramadol at home prompting presentation. He reports some improvement in pain since arrival. Continues to have left abdominal discomfort, but tolerable after recent hydromorphone administration. No nausea or vomiting at present. Reports some dysuria with voiding today. Reports hematuria post procedure which has cleared. Reports diaphoresis at home with pain, but denies fever or chills. He last ate yesterday evening at 7 PM, sips of water at 7 AM this morning. No additional concerns at this time. Allergies Allergy/AdvReac Type Severity Reaction Status Date / Time No Known Allergies Allergy Verified 09/24/22 14:25 Home Medications Medication Instructions Recorded Confirmed Type atorvastatin 40 mg tablet 40 mg PO HS 10/10/21 09/24/22 History buspirone 15 mg tablet 7.5 mg PO BID 10/10/21 09/24/22 History escitalopram oxalate 10 mg tablet 10 mg PO HS 10/10/21 09/24/22 History tramadol 50 mg tablet 50 mg PO Q6H PRN pain #20 tabs 09/19/22 09/24/22 Rx Patient History Medical History Anxiety Diverticular disease History of COVID-19 04/2022--mild symptoms, no symptoms now Hyperlipidemia Kidney stones Lumbar back pain Nausea and vomiting after administration of anesthetic agent Sleep apnea cpap Vitamin D deficiency Surgical History History of colonoscopy History of hernia surgery x3 History of open reduction and internal fixation (ORIF) procedure right arm x2--hardware in place History of surgery left arm, no hardware History of wisdom tooth extraction Hx of LASIK Family History Other No family history of adverse response to anesthesia Social History Smoking Status: Never smoker Second Hand Exposure: No; Hx Alcohol Use: Yes Hx Substance Use: No Preferred Language: Tajik Communication Ability: Effective Temporary Administrative Assistant Required: No Beliefs That Will Affect Care: None Current Living Situation: Spouse and Family Current Living Situation Comment: Lives with and 3 kids Feels Safe at Home: Yes Assistive Devices: CPAP Review of Systems Review of Systems: All systems reviewed & are unremarkable except as noted in HPI & below Physical Exam Constitutional: well developed and well nourished; no acute distress and not ill appearing Eyes: no scleral abnormality Respiratory: normal respiratory effort; no respiratory distress and no labored breathing Cardiovascular: Extremities: no pedal edema Gastrointestinal (Abdomen): Inspection/Auscultation: abdomen normal to inspection; abdomen not distended Percussion/Palpation: abdomen soft; abdomen nontender Musculoskeletal: Head/Neck/Chest: normocephalic and head atraumatic Skin: no rashes, warm and dry Neurologic: moves all extremities and awake Psychiatric: Orientation: alert and oriented x 3 Genitourinary: no CVA tenderness Results & Data Vital Signs (Past 12 Hours) Vital Signs Temp Pulse Resp BP Pulse Ox O2 Del Method 09/24/22 14:19 72 09/24/22 11:52 Room Air 09/24/22 11:47 36.9 C 59 L 20 134/82 98 Room Air PG Care Time/CCT Total # of Minutes Spent Total Time Spent with Patient: Total time spent is greater than 50% in coordination of care (as documented) at patient's floor/unit and/or counseling patient: Coding Level of Care Code 44898 OFFICE CONSULT LVL M Diagnoses Ureteral calculus, left N20.1 Time Spent (min) 45
[2022-09-24] MEDS ORDERED: CIPROFLOXACIN 400MG / 200ML D5W IV ONE (16:36)
[2022-09-24] MEDS ORDERED: ONDANSETRON INJ 2 MG/ML 2 ML VIAL IV PRN ×2 (17:55→20:01)
[2022-09-24] MEDS ORDERED: fentaNYL citrate PF 100 MCG/2 ML VIAL IV PRN (17:55)
[2022-09-24] MEDS ORDERED: PROMETHAZINE HCL 6.25 MG in SODIUM CHLORIDE 0.9% 50 ML IV PRN (17:55)
[2022-09-24] MEDS ORDERED: ATROPINE SULFATE 0.1 MG/ML 10ML SYR IV PRN (17:55)
[2022-09-24] MEDS ORDERED: ePHEDrine sulfate 50 MG/ML AMP IV PRN (17:55)
--- NOTE | 2022-09-24 17:56 | Anesthesiology Consultation ---
Date of Service September 24, 2022 Assessment & Plan Chart Review Chart Review: Acceptable Risk for Surgery and Patient NOT seen in Pre Admission Testing Consults Requested none ASA ASA2 Proposed Anesthesia Anesthesia Type: General Risk / Benefits Reviewed With: PT / POA / Parent / Guardian, Accepts Plan and Informed Consent Obtained History Surgery Operation Date: 09/24/22 12:55 Proposed Procedures p Cystoscopy, Left Retrograde Pyelogram, Stent Placement - Left - Onesimo Oseguera MD Height/Weight Height: 6 ft 1 in Weight: 101.7 kg Allergies Allergy/AdvReac Type Severity Reaction Status Date / Time No Known Allergies Allergy Verified 09/24/22 14:25 Medications Home Medications Medication Instructions Recorded Confirmed Last Taken atorvastatin 40 mg tablet 40 mg PO HS 10/10/21 09/24/22 09/23/22 buspirone 15 mg tablet 7.5 mg PO BID 10/10/21 09/24/22 09/19/22 07:00 escitalopram oxalate 10 mg tablet 10 mg PO HS 10/10/21 09/24/22 10/09/21 tramadol 50 mg tablet 50 mg PO Q6H PRN pain #20 tabs 09/19/22 09/24/22 09/24/22 Past Medical History Medical History Anxiety Diverticular disease History of COVID-19 04/2022--mild symptoms, no symptoms now Hyperlipidemia Kidney stones Lumbar back pain Nausea and vomiting after administration of anesthetic agent Sleep apnea cpap Vitamin D deficiency Exercise / Class Metabolic Activity II 4-5 Yardwork/Stairs/Walk up hill Past Family History Family History Other No family history of adverse response to anesthesia Past Surgical History Surgical History History of colonoscopy History of hernia surgery x3 History of open reduction and internal fixation (ORIF) procedure right arm x2--hardware in place History of surgery left arm, no hardware History of wisdom tooth extraction Hx of LASIK Past Anesthesia History No Hx of Anesthesia Complications and No Family Hx of Anesthesia Complications History of PONV No Hx of PONV and No Hx of Motion Sickness Social History Smoking Status: Never smoker Hx Alcohol Use: Yes alcohol intake frequency: a few times a month Hx Substance Use: No substance use type: does not use Physical Exam Vital Signs Last Vital Signs Temp 36.9 C 09/24/22 11:47 Pulse 78 09/24/22 16:07 Resp 20 09/24/22 16:07 BP 120/73 09/24/22 16:07 Pulse Ox 94 09/24/22 16:07 O2 Del Method Nasal Cannula 09/24/22 16:07 O2 Flow Rate 2 09/24/22 16:07 ENMT Mouth: no dentition abnormality Thyromental Distance: > or= 3.5 Finger Breadths Mallampati Class: II Neck normal visual inspection Respiratory normal respiratory effort Auscultation: lungs clear to auscultation bilaterally Cardiovascular Rate/Rhythm: regular rate and regular rhythm Psychiatric Orientation: alert Testing Laboratory Results 09/24/22 11:58 09/24/22 11:58 PT 10.9 Seconds (9.0-12.0) 09/24/22 12:00 INR 1.0 (0.9-1.1) 09/24/22 12:00 Urine Color Yellow 09/24/22 15:03 Urine Appearance Clear (Clear) 09/24/22 15:03 Urine pH 7.0 (4.5-7.5) 09/24/22 15:03 Ur Specific [place] > 1.045 (1.000-1.030) H 09/24/22 15:03 Urine Protein Negative (Negative) 09/24/22 15:03 Urine Glucose (UA) Negative (Negative) 09/24/22 15:03 Urine Ketones Negative (Negative) 09/24/22 15:03 Urine Nitrite Negative (Negative) 09/24/22 15:03 Ur Leukocyte Esterase Negative (Negative) 09/24/22 15:03 Urine WBC (Auto) 1-5 /hpf (0-5) 09/24/22 15:03 Urine RBC (Auto) >30 /hpf (0-4) H 09/24/22 15:03 U Hyaline Cast (Auto) 1-5 /lpf (0-5) 09/24/22 15:03 U Epithel Cells (Auto) 0-5 /lpf (0-5) 09/24/22 15:03 Urine Bacteria (Auto) Negative (Negative) 09/24/22 15:03
[2022-09-24] MEDS ORDERED: LIDOCAINE 2% MPF LOCAL 5 ML VIAL ONE (18:15)
[2022-09-24] MEDS ORDERED: fentaNYL citrate PF 100 MCG/2 ML VIAL ONE (18:15)
[2022-09-24] MEDS ORDERED: MIDAZOLAM HCL 1 MG/ML 2ML VIAL ONE (18:15)
[2022-09-24] MEDS ORDERED: PROPOFOL IV EMULSION 10 MG/ML 20 ML VIAL IV ONE (18:15)
[2022-09-24] MEDS ORDERED: KETAMINE 50 MG/5 ML SYRINGE ONE (18:16)
[2022-09-24] MEDS ORDERED: CONRAY 60% 50 ML VIAL FLUSH ONE (18:50)
--- NOTE | 2022-09-24 18:54 | Operative Report ---
PG Post Operative Report Pre & Post Diagnosis Operation Date: 09/24/22 12:55 Pre-Op Diagnosis: Left ureteral stones Post-Op Diagnosis: Left ureteral stones I identified the patient and participated in the time-out.: Yes Procedure Operation Date: 09/24/22 12:55 Actual Procedures p Cystoscopy, Left Retrograde Pyelogram, Stent Placement - Left - Onesimo Oseguera MD Surgeon Onesimo Oseugera MD [employer] Worker None Estimated Blood Loss 0 Findings Consistent with Post-Op Diagnosis Specimens None Drains 6 Maori by 26 cm double-J ureteral stent in the left ureter Anesthesia Type MAC Complications none Disposition Accompanied Patient To Recovery: Yes Disposition: Recovery Room Indications This is a 52-year-old male who presented to the emergency department on 09/24 with left-sided flank pain after recent shockwave lithotripsy. He was found to have a stack of stones in the distal ureter causing obstruction and left hydronephrosis. He is being brought to the OR for left ureteral stent placement to decompress the kidney. Description of Procedure The patient was identified in the holding area and informed consent was confirmed. He was marked on the left side, then was taken to the operating room where anesthesia was initiated. He was placed in the dorsal lithotomy position with all pressure points appropriately padded. He was prepped and draped in the usual sterile fashion and a preoperative timeout was performed. A well-lubricated cystoscope was inserted per urethra and panendoscopy was performed. The pendulous urethra was normal with no strictures or mucosal abnormalities. The prostate was of normal size. His bladder appeared grossly normal with no tumors or stones appreciated. Ureteral orifices were in orthotopic position bilaterally. Using a 5 Maori open-ended catheter I attempted to intubate the left ureteral orifice. There was some resistance and rigidity to the underlying tissue, raising suspicion for an impacted stone right at the UVJ. I was able to advance a 0.038 inch zip wire up the ureter past the stones that have been seen on the CT scan. The proximal curl of the wire was seen in the kidney on x-ray. The renal pelvis was clearly visualized from contrast he had received earlier for his CT scan. Over the wire, a 6 Maori x 26 cm double-J ureteral stent was advanced. When the wire was removed, there was a good curl in the kidney under fluoroscopic guidance. A curl was visualized in the bladder with the cystoscope. At this point the bladder was drained and all instrumentation was removed. The patient was then awakened from anesthesia and was brought to the PACU in stable condition. I attest to the content of the Intraoperative Record and any orders documented therein. Any exceptions are noted below.
--- NOTE | 2022-09-24 19:16 | Fluoroscopy Report ---
INTRAOPERATIVE RADIOGRAPHS CLINICAL HISTORY: Left ureteral stent placement. Fluoro time: 3 seconds Ka,r: 0.5 mGy FINDINGS: 3 spot fluoroscopic views of the left upper quadrant are correlated with abdominal CT perfo rmed the same day 09/24/2022. The initial 2 images show a wire in the left renal collecting system. In jected contrast shows mild to moderate left hydronephrosis. The final image shows the proximal end of a left ureteral stent in appropriate position. IMPRESSION: Intraoperative images from a left ureteral stent placement procedure as above. Electronically signed by: Marlo Villegas M.D. 09/24/2022 7:14 PM
--- NOTE | 2022-09-24 19:46 | Anesthesiology Progress Note ---
Date of Service September 24, 2022 Anesthesia Post Procedure Vital Signs Vital Signs: Temp Pulse Pulse Resp BP BP Pulse Ox 09/24/22 19:10 75 9 L 108/70 97 09/24/22 19:01 36.9 C 74 16 101/67 97 09/24/22 16:45 37.1 C 74 18 123/81 97 09/24/22 16:07 78 20 120/73 94 09/24/22 14:19 72 09/24/22 11:52 09/24/22 11:47 36.9 C 59 L 20 134/82 98 O2 Del Method O2 Flow Rate 09/24/22 19:10 Oxymask 7 09/24/22 19:01 Oxymask 7 09/24/22 16:45 Nasal Cannula 2 09/24/22 16:07 Nasal Cannula 2 09/24/22 14:19 09/24/22 11:52 Room Air 09/24/22 11:47 Room Air Pain Intensity Abdomen: Pain Intensity: 4 Transfer of Care Handoff Completed per policy Notes Mental Status: alert / awake / arousable Patient Amnestic to Procedure: Yes Nausea / Vomiting: adequately controlled Pain: adequately controlled Airway Patency, RR, SpO2: stable & adequate BP & HR: stable & adequate Hydration State: stable & adequate Anesthetic Complications: no major complications apparent
[2022-09-24] MEDS ORDERED: HYDROmorphone INJ 1 MG/ML SYRINGE IV PRN (20:01)
[2022-09-24] MEDS ORDERED: ACETAMINOPHEN 325 MG TAB PO PRN (20:01)
[2022-09-24] MEDS ORDERED: KETOROLAC TROMETHAMINE 15 MG/ML VIAL IV PRN (20:01)
[2022-09-24] MEDS ORDERED: oxyCODONE HCL IR 5 MG TAB (IMMEDIATE RELEASE) PO PRN (20:01)
[2022-09-24] MEDS ORDERED: POLYETHYLENE (MIRALAX) 17 GM PACK PO PRN (20:01)
[2022-09-24] MEDS ORDERED: cefTRIAXone SODIUM 2,000 MG in DEXTROSE 5% 50 ML IV SCH (20:15)
[2022-09-24] MEDS ORDERED: ATORVASTATIN 40 MG TAB PO SCH (21:00)
[2022-09-24] MEDS ORDERED: TAMSULOSIN HCL 0.4 MG CAP PO SCH (21:00)
[2022-09-24] MEDS: busPIRone 7.5 MG TAB PO SCH (21:00)
[2022-09-24] MEDS ORDERED: ESCITALOPRAM OXALATE 10 MG TAB PO SCH (21:00)
[2022-09-24] MEDS: SODIUM CHLORIDE 0.9% 1000ML 1,000 ML IV SCH (21:02)
[2022-09-25] MEDS: SODIUM CHLORIDE 0.9% 1000ML 1,000 ML IV SCH (05:05)
[2022-09-25] MEDS ORDERED: CIPROFLOXACIN / D5W 400 MG/200 ML BAG IV SCH (06:00)
--- NOTE | 2022-09-25 07:41 | Urology Progress Note ---
Date of Service September 25, 2022 Assessment & Plan (1) Ureteral calculus, left: (2) Hydronephrosis: Plan: 52 yo M recently status post left ESWL for large left renal calculus presented to the emergency department on 09/24/2022 with intractable left abdominal pain and nausea and was admitted for pain secondary to multiple left obstructing ureteral calculi. - Pt POD#1 s/p cystoscopy and left ureteral stent placement with Dr. Oseguera - Doing well, progressing as expected - Afebrile, no new labs at time of visit - Tolerating left ureteral stent with minimal bother - Okay to d/c from perspective when medically stable - Recommend d/c with Tamsulosin, prn Pyridium and prn pain medication for stent management - Expected clinical course reviewed, all questions answered - Will arrange outpatient follow-up with our service for definitive management Admission and Anticipated Discharge Date Admission Date: September 24, 2022 Subjective Patient awake, alert and ambulating from restroom upon my arrival. No acute issues overnight. He reports feeling much better this morning. Tolerating left stent with minimal bother. He did not require pain medication overnight. He is voiding spontaneously. Notes hematuria postprocedure. No additional concerns today. Review of Systems Constitutional: as per Subjective / HPI Gastrointestinal: as per Subjective / HPI Genitourinary: + as per Subjective / HPI Physical Exam Constitutional: well developed and well nourished; no acute distress and not ill appearing Respiratory: normal respiratory effort; no respiratory distress and no labored breathing Cardiovascular: Extremities: no pedal edema Gastrointestinal (Abdomen): Inspection/Auscultation: abdomen normal to inspection; abdomen not distended Musculoskeletal: Head/Neck/Chest: normocephalic and head atraumatic Neurologic: moves all extremities and awake Psychiatric: Orientation: alert and oriented x 3 Results & Data Vital Signs (Past 12 Hours) Vital Signs Temp Pulse Resp BP Pulse Ox O2 Del Method 09/25/22 07:18 36.4 C L 67 16 102/64 94 Room Air 09/25/22 02:50 36.3 C L 75 18 106/63 91 Room Air 09/24/22 22:40 36.4 C L 83 18 94/62 L 90 Room Air 09/24/22 21:41 36.5 C 71 18 115/73 93 Room Air 09/24/22 20:40 36.3 C L 68 18 120/78 94 Room Air 09/24/22 20:10 36.4 C L 65 18 117/71 95 Room Air PG Care Time/CCT Total # of Minutes Spent Total Time Spent with Patient: Total time spent is greater than 50% in coordination of care (as documented) at patient's floor/unit and/or counseling patient: Coding Level of Care Code 20182 SUB INP/OBS CARE 07/09MIN Diagnoses Ureteral calculus, left N20.1 Hydronephrosis N13.30
[2022-09-25] MEDS: busPIRone 7.5 MG TAB PO SCH (07:57)
[2022-09-25 08:51] LABS: BUN Creatinine Ratio 17.2 (10-20); Calcium 8.7 mg/dl (8.6-10.3); Creatinine Clr Calc Pharmacy 117.8 ml/min; Est GFR (African American) 109.8 ml/min; Est GFR (Non-African American) 94.7 ml/min; Potassium 4.3 mmol/L (3.5-5.1)
[2022-09-25 08:54] LABS: Basophils # (auto) 0.02 K/uL (0-0.2); Basophils % (auto) 0.2 %; Hematocrit (blood only) 40.5 % (42.0-52.0); Hemoglobin 14.2 g/dl (14.0-18.0); Immature Granulocytes # (auto) 0.04 K/uL (0.01-0.20); Immature Granulocytes % (auto) 0.3 %; Lymphocytes # (auto) 1.24 K/uL (1.2-3.4); Lymphocytes % (auto) 10.3 %; Mean Corpuscular Hemoglobin 32.1 pg (25.0-34.0); Mean Corpuscular Hgb Conc 35.1 g/dL (32.0-36.0); Mean Corpuscular Volume 91.6 fL (80.0-100.0); Mean Platelet Volume 9.6 fL (9.4-12.4); Monocytes # (auto) 0.56 K/uL (0.11-0.59); Monocytes % (auto) 4.6 %; Neutrophils # (auto) 10.22 K/uL (1.40-6.50); Neutrophils % (auto) 84.6 %; Platelet Count 222 K/uL (130-400); RDW Coefficient of Variation 12.6 % (11.5-14.5); RDW Standard Deviation 42.3 fL (36.4-46.3); Red Blood Count 4.42 M/uL (4.70-6.10); White Blood Count 12.08 K/ul (4.8-10.8)
--- NOTE | 2022-09-25 12:15 | Hospitalist Progress Note ---
Date of Service September 25, 2022 Assessment & Plan (1) Renal colic: Plan: Status post left ureteric stent The colic resolved (2) Ureteral calculus, left: Plan: Status post cystoscopy, left retrograde pyelogram and stent placementin the left ureter Pain is resolved Follow-up appointment with the urologist is scheduled (3) Hydronephrosis: Plan: Patient is 52 y/o M with PMH dyslipidemia, anxiety, KELSIE, kidney stones presented to ER with complaint of left flank and left lower abdominal pain x1 day. Lithotripsy on 09/19/22. In ER afebrile, vitals stable WBC: 13.6, BUN: 16, Cr: 1.2 (baseline~1.0 per chart review). UA: 3+ blood,> 30 WBC, negative bacteria CT abdomen pelvis: There are obstructing stones/fragments in the proximal and distal left ureter as detailed above. This causes mild to moderate left hydroureteronephrosis. There are additional nonobstructing stones/fragments in the left kidney as well as nonobstructing right renal calculi as above. There is heterogeneous enhancement the left kidney with surrounding inflammation, likely related to obstruction/hydronephrosis. Appreciate urology input and recommendation Status post cystoscopy, left retrograde pyelogram and stent placement in the left ureter He has been feeling much better and denies any significant symptoms Ambulating well He will be discharged home this afternoon (4) Hyperlipidemia: Plan: Continue atorvastatin (5) Anxiety: Plan: Continue escitalopram, buspirone (6) Sleep apnea: Plan: CPAP at bedtime DVT Prophylaxis SCDs Full Code as per discussion with pt Will be discharged home this afternoon Admission and Anticipated Discharge Date Admission Date: September 24, 2022 Subjective 09/25/2022 The patient was seen and examined in medical floor He is a status post cystoscopy with left retrograde pyelogram and stent placement in the left ureter Denies any complaints and the pain is resolved Will be discharged home this afternoon Review of Systems Review of Systems: All systems reviewed and are unremarkable except as noted below Physical Exam Physical Exam: Lying in bed comfortably Constitutional: well developed, well nourished and + obese; not ill appearing Eyes: PERRL, conjunctivae normal, anicteric sclerae ENMT: external ear and nose normal, oropharynx normal Neck: trachea midline, no thyromegaly Respiratory: no respiratory distress Auscultation: lungs clear to auscultation bilaterally Cardiovascular: Rate/Rhythm: regular rate and regular rhythm; not tachycardic Heart Sounds: normal S1 and normal S2; no murmur Extremities: no edema Gastrointestinal (Abdomen): Inspection/Auscultation: normal bowel sounds; abdomen not distended Percussion/Palpation: + abdomen tender (Left renal angle) and abdomen soft Musculoskeletal: No acute arthritis involving any of the joint Neurologic: normal touch/pain/proprioception and moves all extremities; no focal motor deficits Psychiatric: A+Ox3, euthymic affect Results & Data Results & Data Vital Signs (Past 12 Hours) Vital Signs Temp Pulse Pulse Resp BP BP Pulse Ox 09/25/22 11:49 36.6 C 73 16 105/65 94 09/25/22 07:18 36.4 C L 67 16 102/64 94 09/25/22 02:50 36.3 C L 75 18 106/63 91 O2 Del Method 09/25/22 11:49 Room Air 09/25/22 07:18 Room Air 09/25/22 02:50 Room Air Laboratory Results Short CBC 09/24/22 09/25/22 Range/Units 11:58 08:14 WBC 13.66 H 12.08 H (4.8-10.8) K/ul Hgb 17.5 14.2 D (14.0-18.0) g/dl Hct 49.3 40.5 L (42.0-52.0) % Plt Count 278 222 (130-400) K/uL BMP 09/24/22 09/25/22 11:58 08:14 Sodium 138 137 Potassium 4.1 4.3 Chloride 103 105 Carbon Dioxide 27 27 BUN 16 16 Creatinine 1.21 0.93 Glucose 122 H 127 H Calcium 9.8 8.7 Liver Function 09/24/22 Range/Units 11:58 Total Bilirubin 1.5 H (0.2-1.0) mg/dl AST 19 (13-39) U/L ALT 17 (7-52) U/L Alkaline Phosphatase 94 (34-104) U/L Albumin 4.5 (3.4-5.0) gm/dl Urine 09/24/22 Range/Units 15:03 Urine Color Yellow Urine Appearance Clear (Clear) Urine pH 7.0 (4.5-7.5) Ur Specific [place] > 1.045 H (1.000-1.030) Urine Protein Negative (Negative) Urine Glucose (UA) Negative (Negative) Medications Administered Current Inpatient Medications Acetaminophen (Acetaminophen 325 Mg Tab) 650 mg PO Q4H PRN PRN Reason: pain/fever Stop: 10/24/22 20:00 Last Admin: 09/25/22 08:01 Dose: 650 mg Atorvastatin Calcium (Atorvastatin 40 Mg Tab) 40 mg PO HS [facility] Stop: 10/24/22 20:59 Last Admin: 09/24/22 21:00 Dose: 40 mg Buspirone HCl (Buspirone 7.5 Mg Tab) 7.5 mg PO BID [facility] Stop: 10/24/22 20:59 Last Admin: 09/25/22 07:57 Dose: 7.5 mg Escitalopram Oxalate (Escitalopram Oxalate 10 Mg Tab) 10 mg PO [facility] Stop: 10/24/22 20:59 Last Admin: 09/24/22 22:10 Dose: 10 mg Hydromorphone HCl (Hydromorphone Inj 1 Mg/Ml Syringe) 1 mg IV Q6H PRN PRN Reason: Severe Pain (Scale 7, 8, 9,10) Stop: 10/08/22 20:00 Ceftriaxone Sodium 2,000 mg/ (Dextrose) 70 mls @ 100 mls/hr IV Q24H [facility]; Protocol Stop: 10/04/22 20:14 Last Infusion: 09/24/22 21:50 Dose: Infused Ketorolac Tromethamine (Ketorolac Tromethamine 15 Mg/Ml Vial) 15 mg IV Q6H PRN PRN Reason: Pain Stop: 09/25/22 20:00 Ondansetron HCl (Ondansetron Inj 2 Mg/Ml 2 Ml Vial) 4 mg IV Q6H PRN PRN Reason: Nausea Stop: 10/24/22 20:00 Oxycodone HCl (Oxycodone Hcl Ir 5 Mg Tab (Immediate Release)) 5 mg PO Q4H PRN PRN Reason: Moderate Pain (Scale 4, 5, 6) Stop: 10/08/22 20:00 Polyethylene Glycol (Polyethylene (Miralax) 17 Gm Pack) 17 gm PO DAILY PRN PRN Reason: Constipation Stop: 10/24/22 20:00 Tamsulosin HCl (Tamsulosin Hcl 0.4 Mg Cap) 0.4 mg PO HS [facility] Stop: 10/24/22 20:59 Last Admin: 09/24/22 21:00 Dose: 0.4 mg
--- NOTE | 2022-09-26 07:56 | Discharge Summary ---
Date of Service September 25, 2022 Admission HPI Per Admitting Provider Patient is 52 y/o M with PMH dyslipidemia, anxiety, KELSIE, kidney stones presented to ER with complaint of left flank and left lower abdominal pain x1 day. History obtained from patient and chart review. Patient following with urology and had lithotripsy on 09/19/22. States for 2 days after procedure had hematuria. Denies significant flank or abdominal pain immediately following procedure. States last night started with stabbing pain to left lower abdomen. Took tramadol and went back to sleep. Woke up again this morning with stabbing and more intense pain to left lower abdomen. Took Tramadol without relief. Denies nausea, vomiting. States when pain is severe has diaphoresis. Pain is non- radiating. States has been urinating small amounts and does not feel he is completely emptying his bladder. Hasn't noticed gross hematuria today. He has been constipated. Last BM 4 days ago. This morning took OTC laxative. After had 2-3 episodes of loose stool. Denies hematochezia, melena. Last ate one piece of pizza at 7pm last night. Reports did not eat today. Sipped water to take pill this morning. Denies fever/chills, diaphoresis, ULLOA, dizziness, syncope, vision changes, neck pain, CP, SOB, orthopnea, palpitations, cough, sore throat, choking, otalgia, rhinorrhea, paresthesias, weakness, extremity weakness, extremity edema, dysuria. Admission Exam Per Admitting Provider Physical Exam: General: + distress secondary to discomfort, WDWN Head: normocephalic, atraumatic Eyes: conjunctiva non-injected, anicteric ENT: normal inspection external ears, nose, mucous membranes moist Neck: supple, trachea midline Lungs: clear, no respiratory distress, no wheezing/rhonchi/rales CV: RRR, no murmur, no pretibial edema Abd: normal BS, soft,+tender LLQ Ext: no cyanosis, no calf tenderness Neuro: A&O x 3, no focal deficits noted, normal affect Skin: warm, dry Principal Diagnosis Left ureteral calculus with hydronephrosis status post cystoscopy and stent placement Discharge Exam Lying in bed comfortably Constitutional well developed, well nourished and + obese; not ill appearing Eyes PERRL, conjunctivae normal, anicteric sclerae ENMT external ear and nose normal, oropharynx normal Neck trachea midline, no thyromegaly Respiratory no respiratory distress Auscultation: lungs clear to auscultation bilaterally Cardiovascular Rate/Rhythm: regular rate and regular rhythm; not tachycardic Heart Sounds: normal S1 and normal S2; no murmur Extremities: no edema Gastrointestinal (Abdomen) Inspection/Auscultation: normal bowel sounds; abdomen not distended Percussion/Palpation: + abdomen tender (Left renal angle) and abdomen soft Neurologic normal touch/pain/proprioception and moves all extremities; no focal motor deficits Psychiatric A+Ox3, euthymic affect Discharge Data Allergies Allergy/AdvReac Type Severity Reaction Status Date / Time No Known Allergies Allergy Verified 09/24/22 14:25 Consultations 09/24/22 14:35 ED Decision to Admit Stat 09/24/22 20:01 Consult Urology Routine Procedures Performed Operation Date: 09/24/22 12:55 Actual Procedures p Cystoscopy, Left Retrograde Pyelogram, Stent Placement - Left(Left) - Onesimo Oseguera MD Ordered Studies 09/24/22 12:06 CT abd pelvis IV con only Stat 09/24/22 16:21 FL retrograde includes kub Routine Hospital Course (1) Renal colic: Status post left ureteric stent The colic resolved (2) Ureteral calculus, left: Status post cystoscopy, left retrograde pyelogram and stent placementin the left ureter Pain is resolved Follow-up appointment with the urologist is scheduled (3) Hydronephrosis: Patient is 52 y/o M with PMH dyslipidemia, anxiety, KELSIE, kidney stones presented to ER with complaint of left flank and left lower abdominal pain x1 day. Lithotripsy on 09/19/22. In ER afebrile, vitals stable WBC: 13.6, BUN: 16, Cr: 1.2 (baseline~1.0 per chart review). UA: 3+ blood,> 30 WBC, negative bacteria CT abdomen pelvis: There are obstructing stones/fragments in the proximal and distal left ureter as detailed above. This causes mild to moderate left hydr oureteronephrosis. There are additional nonobstructing stones/fragments in the left kidney as well as nonobstructing right renal calculi as above. There is heterogeneous enhancement the left kidney with surrounding inflammation, likely related to obstruction/hydronephrosis. Appreciate urology input and recommendation Status post cystoscopy, left retrograde pyelogram and stent placement in the lef t ureter He has been feeling much better and denies any significant symptoms Ambulating well He will be discharged home this afternoon (4) Hyperlipidemia: Continue atorvastatin (5) Anxiety: Continue escitalopram, buspirone (6) Sleep apnea: CPAP at bedtime DVT Prophylaxis SCDs Full Code as per discussion with pt Will be discharged home this afternoon Total Time Total Time Spent Total Time Spent (In Minutes): 35 mi tonyaes Discharge Plan Discharge Items Patient Disposition: Home - Self-Care Reason For Visit: RENAL COLIC Discharge Diagnosis: Left ureteral calculus with hydronephrosis status post cystoscopy and stent placement Condition on Discharge: Good Activity: Resume your previous activity Non-emergency contact: Primary Care Provider Call non-emergency contact if: you have any medication questions and your symptoms worsen Follow-up/Referrals: Anila Meng CRNP [Nurse Practitioner] - 10/06/22 9:30 am (PLEASE GO TO [facility] FOR KUB XRAY 1 DAY PRIOR TO APPOINTMENT.) Ezio Fraser PA-C [Primary Care Provider] - (Date & Time 10/01/2022 9:20 AM Provider Ezio Fraser PA-C Department General Internal Medicine [facility] ) Diet: Regular Addtl Attending Provider Instructions: Please drink plenty of fluid Keep appointments with your healthcare providers Take your medications as advised Pending Studies at Discharge: No Stand-Alone Forms: My [employer], Smoking Cessation Medications and DC Order Prescriptions: New tamsulosin 0.4 mg Capsule 0.4 mg PO HS 30 Days Qty: 30 0RF phenazopyridine [Pyridium] 200 mg tablet 200 mg PO Q8H PRN (Reason: pain) Qty: 6 0RF Continued tramadol 50 mg tablet 50 mg PO Q6H PRN (Reason: pain) Qty: 20 0RF atorvastatin 40 mg tablet 40 mg PO HS buspirone 15 mg tablet 7.5 mg PO BID escitalopram oxalate 10 mg tablet 10 mg PO HS Discharge Orders: Discharge Order (Routine); Ordered 09/25/22 Ordered By: Sukhwinder Bach Admission Data Admit Date/Time: 09/24/22 14:37 Attending Provider: Sukhwinder Bach Admit Provider: Lissy Brady Primary Care Provider: Ezio Fraser Other Providers: Lissy Brady ; Onesimo Oseguera Other Interventions: Discharge Summary Assessment (RN) Last Done: 09/25/22 14:16
--- NOTE | 2022-09-29 11:36 | Coding Query ---
CODING QUERY To promote full compliance with coding requirements relating to patient care, provider participation is requested in all cases of global sourcing manager uncertainty. Please assist us with the question(s) below: Coding Question(s): Please clarify if hydronephrosis with ureter calculus was a complication of care. Physician's Response(s): This is a possible outcome of ESWL and is discussed with patient's prior to surgery. Would not characterize it as a complication. Thank you Tea Mcconnell Principal Diagnosis: "that condition established after study, to be chiefly responsible for occasioning the admission of the patient to the hospital for care." Co-Existing Principal Diagnosis: "when two or more diagnoses equally meet the criteria for principal diagnosis as determined by the circumstances of admission, diagnostic work up, and/or therapy provided, and the Alphabetic Index, Tabular List, or another coding guideline does not provide sequencing direction, any one of the diagnoses may be sequenced first." "When the physician has documented what appears to be a current diagnosis in the body of the record, but has not included the diagnosis in the final diagnostic statement, the physician should be asked whether the diagnosis should be added." (Source Coding [facility] 2 QTR90. p3-4) RUPERT
== END 2022-09-25 14:48 | disposition home or self-care (01) | DRG 694 ==
LOC: ED 11:42 → 3N 14:37 → SUATTDRO 14:37